=== PATIENT | male | born 1950 | race Caucasian/White ===

== ENCOUNTER → 2019-01-18 16:25 | Outpatient (CLI) | payer OTHER, SELFPAY ==
[2019-01-18 18:23] LABS: ALB/GLOB Ratio 1.4 RATIO (0.9-2.4); AST(SGOT) 19 U/L (15-37); Alanine Aminotransfer ALT/SGPT 24 U/L (16-61); Alkaline Phosphatase 47 U/L (45-117); Anion Gap 7 (5-15); BUN 16 mg/dL (7-18); BUN/Creat Ratio 17.3 RATIO (10-20); Calcium,Total 8.6 mg/dL (8.5-10.1); Chloride 106 mmol/L (98-107); Creatinine, Serum 0.93 mg/dL (0.70-1.30); EST Glomerular Filtration Rate 86 mL/min (>60); Est Glom Filt Rate - Afr Amer 105 mL/min (>60); Globulin 2.8 g/dL (2.2-4.2); Glucose 86 mg/dL (74-106); Potassium 4.1 mmol/L (3.5-5.1); Protein, Total 6.8 g/dL (6.4-8.2); Sodium Level 143 mmol/L (136-145)
[2019-01-18 18:37] LABS: Microalbumin,Random Urine 12.4 mg/L (NO RANGE EST.); Microalbumin:Creatinine Ratio 7.8 mg/g CRE (<30 mg/g CRE)
== END ==
PROVIDERS: Family Provider Family Medicine; PCP Family Medicine; Referring Provider Family Medicine; Visit Provider Family Medicine
DX: R39.89 Other symptoms and signs involving the genitourinary system (principal)
CPT/HCPCS: 36415; 80053; 82043; 82570; 87086

== ENCOUNTER → 2019-01-23 16:30 | Outpatient (CLI) | payer OTHER, SELFPAY ==
--- NOTE | 2019-01-23 16:35 | US_ITS ---
STUDY: RENAL ULTRASOUND - COMPLETE REASON FOR EXAM: Male, 68 years old. Urine discoloration TECHNIQUE: Ultrasound evaluation of the kidneys was performed with real-time and static epstein-scale imaging. COMPARISON: None. FINDINGS: RIGHT KIDNEY: Normal location of the right kidney, which is normal in size. The right kidney measures 11.5 x 5.9 x 6.2 cm. There is a normal cortex of the right kidney. The renal cortex measures 2.0 cm. There is no right renal mass or cyst. There are no right renal calculi. There is no right hydronephrosis. DISTAL RIGHT URETER: There is non-visualization of the distal right ureter. There is a visualized right ureteral jet. LEFT KIDNEY: Normal location of the left kidney, which is normal in size. The left kidney measures 9.7 x 4.2 x 5.3 cm. There is a normal cortex of the left kidney. The renal cortex measures 2.0 cm. There is a lower pole 1.2 cm cyst. There is a 2 mm nonobstructive calculus. There is no left hydronephrosis. DISTAL LEFT URETER: There is non-visualization of the distal left ureter. There is a visualized left ureteral jet. BLADDER: The distended urinary bladder has a volume of 171 ml. The post void urinary bladder has a volume of 65 ml. There is a normal wall thickness of the distended urinary bladder. There is no demonstrated mass within the urinary bladder. There are no demonstrated bladder calculi. The prostate measures 4.2 x 4.2 x 5.1 cm. US/Kidney and Bladder IMPRESSION: Left renal cyst and possible nonobstructive stone. Postvoid residual of the urinary bladder. Electronically Signed: Chip Araya DO at 22:47 EDT Tel [phone], Service support ,
== END ==
PROVIDERS: Family Provider Family Medicine; PCP Family Medicine; Referring Provider Family Medicine; Visit Provider Family Medicine
DX: R39.89 Other symptoms and signs involving the genitourinary system (principal)
CPT/HCPCS: 76770

== ENCOUNTER → 2020-11-25 | Outpatient (CLI) | payer MEDICARE, OTHER, SELFPAY ==
--- NOTE | 2020-11-25 12:00 | HEM_PTH ---
PATIENT: MIGUELINA FLOOD LOC: [facility] U#:[id number] AGE/SX: 70/M ROOM: RE11/25/[address]: Dr. Jose Timmons MD : 1950 BED: DIS: 11/25/2020 SPEC #: [id number] RECD: 11/25/20 14:40 STATUS: FRANCESCO SAM #: [id number] LORI: 11/25/20 12:[address]: Jose Timmons DEPT: SURGICAL PATHOLOGY RECD BY: Matt Kyle ENTERED: 11/26/20 10:55 SP TYPE: HEMORRHOID OTHR DR: Dr. Guillermo Barillas MD Tissues: HEMORRHOIDS Procedures: Surgery Specimen Level III HEADER OPERATION: Hemorrhoidectomy PRE-OP DIAGNOSIS: Prolapsing internal hemorrhoid TISSUE SUBMITTED: Prolapsing internal hemorrhoid MICROSCOPIC DIAGNOSIS Prolapsing internal hemorrhoid, hemorrhoidectomy: A piece of squamous mucosa with a focal area of congested and dilated blood vessels, consistent with hemorrhoid. VINEET:jesus 11/27/2020 MICROSCOPIC DESCRIPTION Slides are reviewed. GROSS DESCRIPTION Received in fixative is one container labeled with the patient's name and designated prolapsing hemorrhoid. The specimen consists of a polypoid fragment of glistening liao mucosa with hemorrhagic submucosal tissue. The specimen measures 4.5 x 2.5 x 2.5 cm. Serial sections reveal homogenous light liao cut surfaces. Airworthiness Safety Inspector sections are submitted in two cassettes. / AM:jesus 11/26/20 TC:5 CPT: 32748
[2020-11-25 12:49] VITALS: BMI 24.4
== END | disposition home or self-care (01) ==
LOC: LABSPEC 14:50
PROVIDERS: PCP Family Medicine; Referring Provider Surgery; Visit Provider Surgery
DX: K64.8 Other hemorrhoids (principal)
CPT/HCPCS: 88304

== ENCOUNTER 2021-01-05 16:26 | Outpatient (RCR) | payer MEDICARE, OTHER, SELFPAY ==
[2020-11-25 12:49] VITALS: BMI 24.4
== END 2021-01-05 23:59 ==
LOC: IMMUN 16:26
PROVIDERS: PCP Family Medicine; Visit Provider Family Medicine
DX: Z23 Encounter for immunization (principal)
CPT/HCPCS: 0011A; 0012A

== ENCOUNTER 2021-09-15 05:57 | Day surgery (SDC) | payer MEDICARE, OTHER, SELFPAY ==
[2021-09-15] VITALS (9 sets, daily range): BP systolic 110–148; BP diastolic 67–87; PULSE 49–64; RESP 16–18; TEMP 35.9–36.1; O2SAT 4–100; BMI 24.5
--- NOTE | 2021-09-15 06:28 | HP.PCM_ITS ---
HPI - General HPI Narrative MIGUELINA FLOOD, is a 70 M who presents for screening colonoscopy. His previous one was 10 years ago. I did assist him within the past couple months with a thrombosed hemorrhoid with a surgical hemorrhoidectomy in the office. He has done well with that. He denies any abdominal pain. No bright red blood per rectum or melena. He has healed well from his recent hemorrhoid surgery. He has no family history of colon cancer. [facility] Medical History (Updated 09/15/21 @ 06:[address] Jose Timmons MD) Alcohol use Hemorrhoid Hemorrhoids, internal, thrombosed History of Mohs micrographic surgery for skin cancer History of stress test Migraine headache Non-smoker Wears contact lenses Home Medications multivitamin 1 tab PO DAILY 11/25/20 [History Last Taken Unknown] Allergy/AdvReac Type Severity Reaction Status Date / Time No Known Allergies Allergy Verified 09/14/21 09:20 Family History Father CVA (cerebral vascular accident) Hypertension Mother Hypertension Surgical History (Updated 11/26/20 @ 08:02 by Aarti Gutierrez) History of colonoscopy (~2008) History of hemorrhoidectomy (~11/2020) History of tonsillectomy Social History (Updated 11/26/20 @ 15:[address] Jose Timmons MD) Smoking Status: Never smoker ROS Constitutional Constitutional: Reports systems reviewed and no addt'l complaints, except as documented Cardiovascular Cardiovascular: Denies chest pain Respiratory/Chest Respiratory/Chest: Denies shortness of breath at rest Gastrointestinal Gastrointestinal: Denies abdominal pain, change in bowel habits, hematochezia or melena Physical Exam Const alert, oriented x3 and no apparent distress General Appearance: cooperative and comfortable Eyes General Eye: normal appearance of both eyes Neck General: normal visual inspection Chest inspection of chest normal Resp Effort and Inspection: able to speak in complete sentences and symmetric chest movement Auscultation: clear to auscultation bilaterally Cardio regular rate and regular rhythm GI soft to palpation, non-tender and non-distended GI Narrative: Soft, aorta appears somewhat enlarged pulsatile/expansile, nontender Extremity no calf tenderness Neuro oriented x3 Psych thought process normal Assessment & Plan Assessment/Plan (1) Screening for intestinal cancer: PLAN: I plan to proceed today with a screening colonoscopy with possible biopsy or polypectomy as indicated. He is aware of the technique, benefit, risk, alternatives. He presents via open access today. On my clinical examination today I feel that his aorta in the abdomen is slightly enlarged. I will plan for an outpatient aortic duplex exam. I appreciate the opportunity of assisting with the surgical care Jose Timmons M.D., F.A.C.S.
[2021-09-15] MEDS: Lactated Ringers 1,000 ML 100 ML IV (06:45)
--- NOTE | 2021-09-15 06:58 | SUR.PREOP ---
500ml tap water enema given d/t last bm cloudy light brown
--- NOTE | 2021-09-15 07:00 | COLBX_PTH ---
PATIENT: MIGUELINA FLOOD LOC: [facility] U#:[id number] AGE/SX: 70/M ROOM: RE09/15/[address]: Dr. Jose Timmons MD : 1950 BED: DIS: 09/15/2021 SPEC #: [id number] RECD: 09/15/21 13:52 STATUS: FRANCESCO VARGAS #: [id number] LORI: 09/15/21 07:[address]: Jose Timmons DEPT: SURGICAL PATHOLOGY RECD BY: Kathryn Byrne ENTERED: 09/16/21 08:59 SP TYPE: COLON BX OTHR DR: Dr. Guillermo Barillas MD Tissues: Cecum, NOS Procedures: Surgery Specimen Level IV HEADER OPERATION: Colonoscopy ? open access (MOD) PRE-OP DIAGNOSIS: Screening for intestinal cancer TISSUE SUBMITTED: Cecum polyp MICROSCOPIC DIAGNOSIS Cecal polyp, biopsy: Fragments of tubular adenoma. AM:jesus 09/17/2021 MICROSCOPIC DESCRIPTION Slides are reviewed. GROSS DESCRIPTION Received in fixative is one container labeled with the patient's name and designated cecum polyp. The specimen consists of multiple irregular fragments of light liao soft tissue that in aggregate measure 2.5 x 0.7 x 0.2 cm. The specimen is totally submitted in one cassette. / SJ:jesus 09/16/21 TC:5 CPT: 38088
[2021-09-15] MEDS: Midazolam 5 MG/ML Syringe (07:05)
--- NOTE | 2021-09-15 07:26 | OP.COLON_ITS ---
Patient Name: Sheng Gardiner Procedure Date: 09/15/2021 6:59 AM Date of : 1950 Age: 70 Procedure: Colonoscopy Indications: Screening for colorectal malignant neoplasm Providers: Jose Timmons MD Medicines: Midazolam 3.5 mg IV, Meperidine 100 mg IV Patient Profile: Last Colonoscopy: 10 years ago. Complications: No immediate complications. Procedure: Pre-Anesthesia Assessment: - Prior to the procedure, a History and Physical was performed, and patient medications and allergies were reviewed. The patient's tolerance of previous anesthesia was also reviewed. The risks and benefits of the procedure and the sedation options and risks were discussed with the patient. All questions were answered, and informed consent was obtained. Prior Anticoagulants: The patient has taken no previous anticoagulant or antiplatelet agents. ASA Grade Assessment: II - A patient with mild systemic disease. After reviewing the risks and benefits, the patient was deemed in satisfactory condition to undergo the procedure. After I obtained informed consent, the scope was passed under direct vision. Throughout the procedure, the patient's blood pressure, pulse, and oxygen saturations were monitored continuously. The pediatric colonoscope was introduced through the anus and advanced to the cecum, identified by appendiceal orifice and ileocecal valve. The colonoscopy was performed without difficulty. The patient tolerated the procedure well. The quality of the bowel preparation was good. The ileocecal valve and the appendiceal orifice were photographed. Moderate Sedation: Moderate (conscious) sedation was personally administered by the endoscopist. The following parameters were monitored: oxygen saturation, heart rate, blood pressure, and response to care. Total physician intraservice time was 15 minutes. Scope In: 7:08:31 AM Scope Withdrawal Time 0 hours 9 minutes 13 seconds Scope Out: 7:21:38 AM Total Procedure Duration Time 0 hours 13 minutes 7 seconds Findings: The digital rectal exam findings include non-thrombosed internal hemorrhoids and internal hemorrhoids that prolapse with straining, but spontaneously regress to the resting position (Grade II). Pertinent negatives include normal prostate (size, shape, and consistency). A 10 mm polyp was found in the cecum. The polyp was semi-sessile. The polyp was removed with a hot snare. Resection and retrieval were complete. Multiple diverticula were found in the sigmoid colon and descending colon. Impression: - Non-thrombosed internal hemorrhoids and internal hemorrhoids that prolapse with straining, but spontaneously regress to the resting position (Grade II) found on digital rectal exam. - One 10 mm polyp in the cecum, removed with a hot snare. Resected and retrieved. - Diverticulosis in the sigmoid colon and in the descending colon. Recommendation: - Discharge patient to home. - Resume previous diet. - Continue present medications. - Repeat colonoscopy in 5 years for surveillance. - Telephone my office for pathology results in 1 week. Procedure Code(s): --- Professional --- 32671, Colonoscopy, flexible; with removal of tumor(s), polyp(s), or other lesion(s) by snare technique 58444, 59, Moderate sedation services provided by the same physician or other qualified health care team assistant performing the diagnostic or therapeutic service that the sedation supports, requiring the presence of an independent trained observer to assist in the monitoring of the patient's level of consciousness and physiological status; initial 15 minutes of intraservice time, patient age 5 years or older Diagnosis Code(s): --- Professional --- Z12.11, Encounter for screening for malignant neoplasm of colon K64.1, Second degree hemorrhoids D12.0, Benign neoplasm of cecum K57.30, Diverticulosis of large intestine without perforation or abscess without bleeding CPT copyright 2017 [employer]. All rights reserved. The codes documented in this report are preliminary and upon lapidary apprentice review may be revised to meet current compliance requirements. Jose Timmons MD 09/15/2021 7:25:56 AM This report has been signed electronically. Number of Addenda: 0 Note Initiated On: 09/15/2021 6:59 AM
--- NOTE | 2021-09-15 07:27 | OP.CCLET_ITS ---
09/15/2021 Guillermo Barillas [address] [place] [address] Re : Colonoscopy procedure for Sheng Gardiner Dear Dr. Barillas This procedure was performed on Wednesday, September 15, 2021. My impressions and recommendations are as follows: Impressions : - Non-thrombosed internal hemorrhoids and internal hemorrhoids that prolapse with straining, but spontaneously regress to the resting position (Grade II) found on digital rectal exam. - One 10 mm polyp in the cecum, removed with a hot snare. Resected and retrieved. - Diverticulosis in the sigmoid colon and in the descending colon. Recommendations : - Discharge patient to home. - Resume previous diet. - Continue present medications. - Repeat colonoscopy in 5 years for surveillance. - Telephone my office for pathology results in 1 week. My findings are described in the full procedure note, which is enclosed. If I can be of further assistance, please feel free to contact me at Doctor phone number(s): Work: . Sincerely, Jose Timmons MD 09/15/2021 7:25:56 AM This report has been signed electronically.
== END 2021-09-15 08:28 ==
LOC: EN 05:57 → AC 05:58
PROVIDERS: PCP Family Medicine; Referring Provider Family Medicine; Visit Provider Surgery
PROC: 0DJD8ZZ Inspection of Lower Intestinal Tract, Via Natural or Artificial Opening Endoscopic (ICD-10-PCS; CPT 45378; principal; 2021-09-15 06:55)
DX: Z12.11 Encounter for screening for malignant neoplasm of colon (principal); D12.0 Benign neoplasm of cecum; K57.30 Diverticulosis of large intestine without perforation or abscess without bleeding; K64.1 Second degree hemorrhoids
CPT/HCPCS: 45380; 88305; 99152; 99153; J7120

== ENCOUNTER → 2021-09-22 07:54 | Outpatient (CLI) | payer MEDICARE, OTHER, SELFPAY ==
--- NOTE | 2021-09-22 07:56 | AAAS_ITS ---
Reason For Study: Pulsatile mass Aorta Measurements Aorta Doppler Measurements Proximal aorta measures1.83 x 1.82cm. in cross- Peak systolic flow velocities within the proximal sectional axis. aorta measure 126.4 cm/sec. Proximal aorta measures1.80cm. in longitudinal Peak systolic flow velocities within the mid aorta axis. measure 119.8 cm/sec. Mid aorta measures1.78 x 1.78cm. in cross- Peak systolic flow velocities within the distal sectional axis. aorta measure 128.6 cm/sec. Mid aorta measures1.78cm. in longitudinal axis. Distal aorta measures1.72 x 1.74cm. in cross- sectional axis. Distal aorta measures1.72cm. in longitudinal axis. Left Iliac Artery Left iliac artery measures 1.06 x 1.04 cm. in the cross-sectional axis. Left iliac artery measures 1.04 cm. in the longitudinal axis. Peak systolic velocity in the left iliac artery measures 135.2 cm/sec. Right Iliac Artery Right iliac artery measures 1.19 x 1.20 cm. in the cross-sectional axis. Right iliac artery measures 1.21 cm. in the longitudinal axis. Peak systolic velocity in the right iliac artery measures 111 cm/sec. Procedure Aorta IVC Iliac vasculature or bypass grafts 26783. Exam performed in department. VL/AAA Screening Interpretation Summary Maximal aortic diameter approximately 1.83 x 1.82 cm in diameter. Slightly increased velocity flow noted within the abdominal aorta of undetermin ed etiology. Left common iliac artery measuring 1.06 x 1.04 cm in diameter Right common iliac measuring 1.19 x 1.2 cm in diameter Ordering Physician: Jose Timmons Referring Physician: Guillermo Barillas MD Performed By: Kezia Link RVT
== END ==
PROVIDERS: PCP Family Medicine; Referring Provider Surgery; Visit Provider Surgery
DX: R19.00 Intra-abdominal and pelvic swelling, mass and lump, unspecified site (principal)
CPT/HCPCS: 76706